=== PATIENT | male | born 1950 | race Caucasian/White ===

== ENCOUNTER 2023-04-16 14:26 | Inpatient (IN) | payer BC ==
[~2023-04-16] VITALS: Ht 177.8 cm; Wt 67.6 kg
[2023-04-16] MEDS ORDERED: CEFTRIAXONE 1 G in IV DEXTROSE 5% 50 ML IV ONE (14:45)
[2023-04-16] MEDS ORDERED: IV NORMAL SALINE 1000 ML BAG IV ONE (14:45)
[2023-04-16] MEDS ORDERED: VANCOMYCIN IV 1,000 MG in IV DEXTROSE 5% 250 ML IV ONE (14:45)
[2023-04-16] MEDS ORDERED: AZITHROMYCIN IV 500 MG in IV DEXTROSE 5% 250 ML IV ONE (14:45)
[2023-04-16] MEDS ORDERED: DEXAMETHASONE SOD PHOSPHATE 4 MG INJ IV ONE (14:45)
[2023-04-16 14:51] LABS: *BILIRUBIN,URIN NEGATIVE (NEGATIVE); *BLOOD, URINE 2+ (NEGATIVE); *CLARITY,URINE CLEAR (CLEAR); *COLOR,URINE YELLOW (YELLOW); *KETONES,URINE NEGATIVE (NEGATIVE); *PROTEIN,URINE 2+ (NEGATIVE); LEUKOCYTE ESTERASE ,URINE 2+ (NEGATIVE); NITRITE, URINE POSITIVE (NEGATIVE); PH,URINE 5.5 (5.0-8.0); UGLUCOSE NEGATIVE (NEGATIVE)
[2023-04-16] MEDS ORDERED: DEXAMETHASONE SOD PHOSPHATE 10 MG INJ ONE (14:54)
[2023-04-16] MEDS ORDERED: VANCOMYCIN IV 200 ML ONE (14:54)
[2023-04-16] MEDS ORDERED: CEFTRIAXONE /D5W 50ML IVPB **ER PYXIS IV ONE (14:54)
[2023-04-16] MEDS ORDERED: AZITHROMYCIN 500MG/ D5W 250ML IVPB **ER PYXIS ONLY IV ONE (14:55)
[2023-04-16 15:10] LABS: BASOPHILS # (AUTO) 0.2 K/UL (0.0-0.2); BASOPHILS % (AUTO) 1.2 % (0.0-2.0); EOSINOPHILS % (AUTO) 0.4 % (0.0-7.0); HEMOGLOBIN 11.7 g/dL (12.5-16.3); LYMPHOCYTES # (AUTO) 0.8 K/uL (0.8-4.8); MEAN CORPUSCULAR HGB CONC 32 g/dL (32.5-36.3); MEAN CORPUSCULAR VOLUME 91.6 fL (73.0-96.2); MONOCYTES # (AUTO) 0.4 K/uL (0.1-1.30); MONOCYTES % (AUTO) 2.7 % (0.0-11.0); NEUTROPHILS # (AUTO) 12.2 K/uL (1.8-8.9); NEUTROPHILS % (AUTO) 89.7 % (38.5-71.5); PLATELET COUNT (AUTO) 360 K/uL (152-348); RED BLOOD CELL COUNT(AUTO) 4.03 MIL/uL (4.06-5.63); RED CELL DISTRIBUTION WIDTH 17.1 % (12.1-16.2); WHITE BLOOD COUNT (AUTO) 13.5 K/uL (3.6-10.2)
[2023-04-16 15:13] LABS: DIFFERENTIAL COMMENT 1
[2023-04-16 15:21] LABS: CALCIUM 9.2 mg/dL (8.5-10.1); CARBON DIOXIDE 26 mmol/L (21-32); CHLORIDE 112 mmol/L (98-107); CREATININE 1.1 mg/dL (0.6-1.3); GLUCOSE 125 mg/dL (74-106); POTASSIUM 3.9 mmol/L (3.5-5.1); SODIUM SERUM 150 mmol/L (136-145); UREA NITROGEN, BLOOD 41 mg/dL (7-18)
[2023-04-16 15:34] LABS: ALANINE AMINOTRANSFERASE 110 U/L (16-63); ALBUMIN 2.5 g/dL (3.4-5.0); ALKALINE PHOSPHATASE 123 U/L (50-136); ASPARTATE AMINOTRANSFERASE 90 U/L (15-37); BILIRUBIN,DIRECT 0.2 mg/dL (0.0-0.2); BILIRUBIN,TOTAL 0.5 mg/dL (0.2-1.0); NT-PRO BNP 5620 pg/mL (0-125); TOTAL PROTEIN, SERUM 7.7 g/dL (6.4-8.2)
[2023-04-16 15:35] LABS: BACTERIA,URINE MANY /HPF (NONE SEEN); RBC,URINE 20-50 /HPF (0-3); WBC,URINE 20-50 /HPF (0-3)
[2023-04-16 15:36] LABS: SQUAMOUS EPITHELIAL CELL,UR MODERATE /HPF (NONE SEEN)
[2023-04-16] MEDS ORDERED: MAGNESIUM HYDROXIDE 30 ML LIQUID UDC PO PRN (16:30)
[2023-04-16] MEDS ORDERED: IV 1/2NS 1000 ML 1,000 ML IV PRN (16:30)
[2023-04-16] MEDS ORDERED: ACETAMINOPHEN 325 MG TABLET PO PRN (16:30)
[2023-04-16] MEDS ORDERED: REMEDY ESSENTIAL ZINC PASTE 113 GM TP PRN (16:30)
[2023-04-16] MEDS ORDERED: ONDANSETRON 4 MG/2 ML VIAL IV PRN (16:30)
[2023-04-16 18:02] LABS: ABG BASE EXCESS 2.8 mmol/L; ABG HCO3 24.9 mmol/L; ABG PCO2 30.3 mmHg (35.0-45.0); ABG PH 7.532 (7.350-7.450); ABG PO2 69.1 mmHg (75.0-100.0); ABG SITE LEFT BRACHIAL; ABG TOTAL HEMOGLOBIN 12.5 G/dL (13.5-18.0); COHb 0.7 % (0.5-1.5); O2Hb 94.2 % (94.0-97.0); VENT MODE Nasal Cannula
[2023-04-16 20:00] VITALS: BP 106/52; TEMP 97.6; O2SAT 99
[2023-04-16] MEDS ORDERED: ENOXAPARIN SODIUM 40 MG/0.4 ML DISP.SYRIN SQ SCH (21:00)
[2023-04-16] MEDS: IV 1/2NS 1000 ML 1,000 ML IV PRN (23:57)
[2023-04-17 00:08] VITALS: BP 100/55; TEMP 97.9; O2SAT 99
[2023-04-17 04:00] VITALS: BP 109/62; TEMP 98.1; O2SAT 98
[2023-04-17 04:22] VITALS: O2SAT 98
[2023-04-17 07:26] LABS: BASOPHILS % (AUTO) 0.3 % (0.0-2.0); HEMATOCRIT 31.9 % (36.7-47.1); HEMOGLOBIN 10.3 g/dL (12.5-16.3); LYMPHOCYTES # (AUTO) 0.9 K/uL (0.8-4.8); LYMPHOCYTES % (AUTO) 6.5 % (20.5-51.5); MEAN CORPUSCULAR HEMOGLOBIN 29.4 uug (23.8-33.4); MEAN CORPUSCULAR HGB CONC 32 g/dL (32.5-36.3); MEAN CORPUSCULAR VOLUME 90.6 fL (73.0-96.2); MONOCYTES # (AUTO) 0.4 K/uL (0.1-1.30); MONOCYTES % (AUTO) 2.6 % (0.0-11.0); NEUTROPHILS # (AUTO) 12.3 K/uL (1.8-8.9); NEUTROPHILS % (AUTO) 90.6 % (38.5-71.5); PLATELET COUNT (AUTO) 324 K/uL (152-348); RED BLOOD CELL COUNT(AUTO) 3.52 MIL/uL (4.06-5.63); RED CELL DISTRIBUTION WIDTH 16.9 % (12.1-16.2); WHITE BLOOD COUNT (AUTO) 13.6 K/uL (3.6-10.2)
[2023-04-17 07:31] LABS: DIFFERENTIAL COMMENT 1
[2023-04-17 08:04] LABS: ALANINE AMINOTRANSFERASE 76 U/L (16-63); ALBUMIN 2.1 g/dL (3.4-5.0); ALKALINE PHOSPHATASE 97 U/L (50-136); ASPARTATE AMINOTRANSFERASE 48 U/L (15-37); BILIRUBIN,TOTAL 0.4 mg/dL (0.2-1.0); CALCIUM 8.8 mg/dL (8.5-10.1); CARBON DIOXIDE 23 mmol/L (21-32); CHLORIDE 112 mmol/L (98-107); CREATININE 0.9 mg/dL (0.6-1.3); GLUCOSE 128 mg/dL (74-106); MAGNESIUM 2.1 mg/dL (1.8-2.4); POTASSIUM 3.4 mmol/L (3.5-5.1); SODIUM SERUM 147 mmol/L (136-145); TOTAL PROTEIN, SERUM 6.9 g/dL (6.4-8.2); UREA NITROGEN, BLOOD 32 mg/dL (7-18)
[2023-04-17 09:01] LABS: ABG HCO3 23.5 mmol/L; ABG PCO2 34.2 mmHg (35.0-45.0); ABG PH 7.454 (7.350-7.450); ABG PO2 70.6 mmHg (75.0-100.0); ABG SITE LEFT RADIAL; ABG TOTAL HEMOGLOBIN 11.5 G/dL (13.5-18.0); COHb 0.5 % (0.5-1.5); MetHb 0.3 % (0.0-1.5); O2Hb 93.7 % (94.0-97.0); VENT MODE Nasal Cannula
[2023-04-17] MEDS ORDERED: VILA20TA PO (11:00)
[2023-04-17] MEDS: FAMOTIDINE. 20 MG/2 ML VIAL IV SCH ×2 (11:16→21:12)
[2023-04-17] MEDS ORDERED: ENOXAPARIN SODIUM 40 MG/0.4 ML DISP.SYRIN SQ SCH (11:18)
[2023-04-17] MEDS: POTASSIUM CHLORIDE 50 ML IV SCH ×2 (11:54→12:52)
[2023-04-17] MEDS ORDERED: REMDESIVIR (CHARGED) 200 MG in IV NORMAL SALINE 210 ML IV ONE (13:00)
[2023-04-17 13:34] LABS: THYROID STIMULATING HORMONE 0.642 mIU/mL (0.358-3.740)
[2023-04-17] MEDS: CEFTRIAXONE 1 G in IV DEXTROSE 5% 50 ML IV SCH (14:23)
[2023-04-17] MEDS ORDERED: METO50TA16 PO (14:33)
[2023-04-17] MEDS ORDERED: OMEP20CA15 PO (14:33)
[2023-04-17] MEDS ORDERED: CYAN-28 PO (14:33)
[2023-04-17] MEDS ORDERED: ASPI81TA31 PO (14:33)
[2023-04-17] MEDS ORDERED: ATOR10TA PO (14:33)
[2023-04-17] MEDS ORDERED: AMLO-212 PO (14:33)
[2023-04-17] MEDS ORDERED: ARIP10TA9 PO (14:33)
[2023-04-17] MEDS ORDERED: LAMO25TA16 PO (14:33)
[2023-04-17] MEDS ORDERED: ASCO500C18 PO (14:33)
[2023-04-17] MEDS ORDERED: GABA600T12 PO (14:33)
[2023-04-17] MEDS ORDERED: FURO-151 PO (14:35)
[2023-04-17] MEDS ORDERED: ATOR20TA PO (14:37)
[2023-04-17] MEDS ORDERED: SILO8CAP2 PO (14:37)
[2023-04-17] MEDS ORDERED: ALPR0.5T8 PO (14:38)
[2023-04-17] MEDS: DEXAMETHASONE SOD PHOSPHATE 4 MG INJ IV SCH (14:58)
[2023-04-17] MEDS ORDERED: AMIODARONE HCL IV 150 MG in IV DEXTROSE 5% 100 ML IV ONE (15:00)
[2023-04-17] MEDS: AZITHROMYCIN IV 500 MG in IV DEXTROSE 5% 250 ML IV SCH (15:02)
[2023-04-17 16:27] VITALS: O2SAT 98
[2023-04-17] MEDS: AMIODARONE HCL IV 450 MG in IV DEXTROSE 5% 250 ML IV PRN (16:28)
[2023-04-17 20:30] VITALS: BP 100/60; TEMP 98.1; O2SAT 98
[2023-04-17] MEDS ORDERED: ENOXAPARIN SODIUM 100 MG/ML DISP.SYRIN SQ SCH (21:00)
[2023-04-17] MEDS ORDERED: ENOXAPARIN SODIUM 100 MG/ML DISP.SYRIN SQ ONE (21:13)
[2023-04-17] MEDS: IV 1/2NS 1000 ML 1,000 ML IV PRN (23:04)
[2023-04-18] MEDS: AMIODARONE HCL IV 450 MG in IV DEXTROSE 5% 250 ML IV PRN (00:42)
[2023-04-18 04:24] VITALS: BP 106/65; TEMP 97; O2SAT 96
[2023-04-18 07:22] LABS: BASOPHILS % (AUTO) 0.1 % (0.0-2.0); DIFFERENTIAL COMMENT 0; HEMATOCRIT 30.6 % (36.7-47.1); LYMPHOCYTES # (AUTO) 0.6 K/uL (0.8-4.8); LYMPHOCYTES % (AUTO) 5.7 % (20.5-51.5); MEAN CORPUSCULAR HEMOGLOBIN 29.5 uug (23.8-33.4); MEAN CORPUSCULAR HGB CONC 33 g/dL (32.5-36.3); MEAN CORPUSCULAR VOLUME 90.2 fL (73.0-96.2); MONOCYTES # (AUTO) 0.4 K/uL (0.1-1.30); MONOCYTES % (AUTO) 3.9 % (0.0-11.0); NEUTROPHILS # (AUTO) 9.3 K/uL (1.8-8.9); NEUTROPHILS % (AUTO) 90.3 % (38.5-71.5); PLATELET COUNT (AUTO) 328 K/uL (152-348); RED BLOOD CELL COUNT(AUTO) 3.39 MIL/uL (4.06-5.63); RED CELL DISTRIBUTION WIDTH 16.8 % (12.1-16.2); WHITE BLOOD COUNT (AUTO) 10.3 K/uL (3.6-10.2)
[2023-04-18 07:52] LABS: ALANINE AMINOTRANSFERASE 86 U/L (16-63); ALBUMIN 2.2 g/dL (3.4-5.0); ALKALINE PHOSPHATASE 95 U/L (50-136); ASPARTATE AMINOTRANSFERASE 55 U/L (15-37); BILIRUBIN,DIRECT 0.2 mg/dL (0.0-0.2); BILIRUBIN,TOTAL 0.5 mg/dL (0.2-1.0); C-REACTIVE PROTEIN 6.1 mg/dL (0.0-0.9); CALCIUM 8.7 mg/dL (8.5-10.1); CARBON DIOXIDE 24 mmol/L (21-32); CHLORIDE 110 mmol/L (98-107); CREATININE 0.8 mg/dL (0.6-1.3); GLUCOSE 117 mg/dL (74-106); POTASSIUM 3.1 mmol/L (3.5-5.1); SODIUM SERUM 145 mmol/L (136-145); TOTAL PROTEIN, SERUM 6.6 g/dL (6.4-8.2); UREA NITROGEN, BLOOD 24 mg/dL (7-18)
[2023-04-18 08:00] VITALS: BP 102/57; TEMP 98.4; O2SAT 92
[2023-04-18] MEDS ORDERED: HOME MED MISCELLANEOUS XX SCH ×2 (08:15→09:00)
[2023-04-18] MEDS: LAMOTRIGINE 25 MG TABLET PO SCH ×3 (09:20→17:10)
[2023-04-18] MEDS: ASCORBIC ACID 500 MG TABLET PO SCH (09:20)
[2023-04-18] MEDS: ARIPIPRAZOLE 10 MG TABLET PO SCH ×2 (09:20→17:10)
[2023-04-18] MEDS: CYANOCOBALAMIN 1,000 MCG TABLET PO SCH (09:24)
[2023-04-18] MEDS: METOPROLOL TARTRATE 50 MG TABLET PO SCH ×2 (09:24→21:18)
[2023-04-18] MEDS: FAMOTIDINE. 20 MG/2 ML VIAL IV SCH ×2 (09:24→21:16)
[2023-04-18] MEDS: SILODOSIN 8 MG PO SCH ×2 (09:30→17:10)
[2023-04-18] MEDS: VIIBRYD 20 MG PO SCH ×3 (09:33→17:10)
[2023-04-18] MEDS: POTASSIUM CHLORIDE 50 ML IV SCH ×4 (09:35→13:16)
[2023-04-18] MEDS: APIXABAN 2.5 MG TABLET PO SCH ×2 (10:33→21:03)
[2023-04-18 11:42] VITALS: BP 105/65; TEMP 98.2; O2SAT 94
[2023-04-18] MEDS: CEFTRIAXONE 1 G in IV DEXTROSE 5% 50 ML IV SCH (13:34)
[2023-04-18 14:06] LABS: PRE ALBUMIN 16.3 MG/DL (18.0-35.7)
[2023-04-18] MEDS: AZITHROMYCIN IV 500 MG in IV DEXTROSE 5% 250 ML IV SCH (14:43)
[2023-04-18] MEDS: DEXAMETHASONE SOD PHOSPHATE 4 MG INJ IV SCH (14:43)
[2023-04-18] MEDS: IV 1/2NS 1000 ML 1,000 ML IV PRN (14:43)
[2023-04-18 16:13] VITALS: O2SAT 96
[2023-04-18 17:45] VITALS: BP 137/75; TEMP 98.4; O2SAT 96
[2023-04-18] MEDS: REMDESIVIR (CHARGED) 100 MG in IV NORMAL SALINE 100 ML IV SCH (18:06)
[2023-04-18 20:00] VITALS: BP 134/57; TEMP 97.8; O2SAT 99
[2023-04-18] MEDS ORDERED: MEGESTROL ACETATE 400 MG/10 ML LIQUID UDC PO SCH (21:00)
[2023-04-18] MEDS ORDERED: SILODOSIN 8 MG PO SCH (21:00)
[2023-04-18] MEDS ORDERED: GABAPENTIN 300 MG CAPSULE PO SCH (21:00)
[2023-04-18] MEDS ORDERED: LORAZEPAM 2 MG/1 ML VIAL IV PRN (21:15)
[2023-04-18] MEDS: MEGESTROL ACETATE 400 MG/10 ML LIQUID UDC PO SCH (21:18)
[2023-04-19] VITALS: BP 118/66; TEMP 97.7; O2SAT 99
[2023-04-19 04:00] VITALS: BP 151/82; TEMP 97.6; O2SAT 97
[2023-04-19] MEDS: IV 1/2NS 1000 ML 1,000 ML IV PRN (05:35)
[2023-04-19 07:29] LABS: BASOPHILS % (AUTO) 0.1 % (0.0-2.0); HEMATOCRIT 29.4 % (36.7-47.1); HEMOGLOBIN 9.7 g/dL (12.5-16.3); LYMPHOCYTES # (AUTO) 0.5 K/uL (0.8-4.8); LYMPHOCYTES % (AUTO) 7.2 % (20.5-51.5); MEAN CORPUSCULAR HEMOGLOBIN 29.9 uug (23.8-33.4); MEAN CORPUSCULAR HGB CONC 33 g/dL (32.5-36.3); MEAN CORPUSCULAR VOLUME 90.2 fL (73.0-96.2); MONOCYTES # (AUTO) 0.5 K/uL (0.1-1.30); NEUTROPHILS # (AUTO) 6.5 K/uL (1.8-8.9); NEUTROPHILS % (AUTO) 86.7 % (38.5-71.5); PLATELET COUNT (AUTO) 336 K/uL (152-348); RED BLOOD CELL COUNT(AUTO) 3.26 MIL/uL (4.06-5.63); RED CELL DISTRIBUTION WIDTH 16.6 % (12.1-16.2); WHITE BLOOD COUNT (AUTO) 7.5 K/uL (3.6-10.2)
[2023-04-19 07:38] LABS: DIFFERENTIAL COMMENT 1
[2023-04-19 08:18] LABS: ALANINE AMINOTRANSFERASE 93 U/L (16-63); ALBUMIN 2.1 g/dL (3.4-5.0); ALKALINE PHOSPHATASE 82 U/L (50-136); ASPARTATE AMINOTRANSFERASE 53 U/L (15-37); BILIRUBIN,DIRECT 0.2 mg/dL (0.0-0.2); BILIRUBIN,TOTAL 0.4 mg/dL (0.2-1.0); CALCIUM 8.6 mg/dL (8.5-10.1); CARBON DIOXIDE 24 mmol/L (21-32); CHLORIDE 108 mmol/L (98-107); CREATININE 0.7 mg/dL (0.6-1.3); GLUCOSE 100 mg/dL (74-106); SODIUM SERUM 141 mmol/L (136-145); TOTAL PROTEIN, SERUM 5.9 g/dL (6.4-8.2); UREA NITROGEN, BLOOD 21 mg/dL (7-18)
[2023-04-19] MEDS: MUPIROCIN 2% OINT 22 GM TUBE NS SCH ×2 (08:43→22:08)
[2023-04-19] MEDS: ARIPIPRAZOLE 10 MG TABLET PO SCH ×2 (08:44→16:33)
[2023-04-19] MEDS: FAMOTIDINE 20 MG TABLET PO SCH ×2 (08:44→17:51)
[2023-04-19] MEDS: LAMOTRIGINE 25 MG TABLET PO SCH ×3 (08:44→16:51)
[2023-04-19] MEDS: CYANOCOBALAMIN 1,000 MCG TABLET PO SCH (08:44)
[2023-04-19] MEDS: APIXABAN 5 MG TABLET PO SCH ×2 (08:46→21:56)
[2023-04-19] MEDS: METOPROLOL TARTRATE 50 MG TABLET PO SCH ×2 (08:49→21:54)
[2023-04-19] MEDS: MEGESTROL ACETATE 400 MG/10 ML LIQUID UDC PO SCH (08:50)
[2023-04-19] MEDS: SILODOSIN 8 MG PO SCH ×2 (08:50→17:53)
[2023-04-19] MEDS: VIIBRYD 20 MG PO SCH ×3 (08:51→17:51)
[2023-04-19] MEDS: ASCORBIC ACID 500 MG TABLET PO SCH (08:52)
[2023-04-19] MEDS ORDERED: MUPIROCIN 2% OINT 22 GM TUBE NS SCH (09:00)
[2023-04-19 11:30] VITALS: BP 121/68; TEMP 97.5; O2SAT 94
[2023-04-19] MEDS ORDERED: SWABABLE VALVE TRANSFER SET EA MC ONE (12:52)
[2023-04-19] MEDS ORDERED: IOHEXOL 350 100 ML INFUS..BTL ONE (12:52)
[2023-04-19] MEDS ORDERED: IV NORMAL SALINE 250 ML IV ONE (12:53)
[2023-04-19] MEDS: REMDESIVIR (CHARGED) 100 MG in IV NORMAL SALINE 100 ML IV SCH (13:53)
[2023-04-19 16:23] VITALS: O2SAT 98
[2023-04-19] MEDS: levoFLOXacin 500 MG TABLET PO SCH (16:33)
[2023-04-19] MEDS: DEXAMETHASONE SOD PHOSPHATE 4 MG INJ IV SCH (16:33)
[2023-04-19 16:53] VITALS: BP 130/69; TEMP 97.9; O2SAT 98
[2023-04-19 20:00] VITALS: BP 128/83; TEMP 99; O2SAT 97
[2023-04-19] MEDS: GABAPENTIN 300 MG CAPSULE PO SCH (21:53)
[2023-04-20] VITALS (8 sets, daily range): BP systolic 113–178; BP diastolic 58–86; TEMP 97.9–99.2; O2SAT 95–98
[2023-04-20 06:59] LABS: BASOPHILS % (AUTO) 0.4 % (0.0-2.0); HEMATOCRIT 31.1 % (36.7-47.1); HEMOGLOBIN 10.4 g/dL (12.5-16.3); LYMPHOCYTES # (AUTO) 0.6 K/uL (0.8-4.8); LYMPHOCYTES % (AUTO) 6.4 % (20.5-51.5); MEAN CORPUSCULAR HEMOGLOBIN 29.9 uug (23.8-33.4); MEAN CORPUSCULAR HGB CONC 33 g/dL (32.5-36.3); MEAN CORPUSCULAR VOLUME 89.6 fL (73.0-96.2); MONOCYTES # (AUTO) 0.5 K/uL (0.1-1.30); MONOCYTES % (AUTO) 5.3 % (0.0-11.0); NEUTROPHILS # (AUTO) 7.6 K/uL (1.8-8.9); NEUTROPHILS % (AUTO) 87.9 % (38.5-71.5); PLATELET COUNT (AUTO) 359 K/uL (152-348); RED BLOOD CELL COUNT(AUTO) 3.47 MIL/uL (4.06-5.63); RED CELL DISTRIBUTION WIDTH 16.2 % (12.1-16.2); WHITE BLOOD COUNT (AUTO) 8.7 K/uL (3.6-10.2)
[2023-04-20 07:16] LABS: DIFFERENTIAL COMMENT 1
[2023-04-20 07:42] LABS: ALANINE AMINOTRANSFERASE 92 U/L (16-63); ALBUMIN 2.2 g/dL (3.4-5.0); ALKALINE PHOSPHATASE 91 U/L (50-136); ASPARTATE AMINOTRANSFERASE 45 U/L (15-37); BILIRUBIN,DIRECT 0.2 mg/dL (0.0-0.2); BILIRUBIN,TOTAL 0.4 mg/dL (0.2-1.0); CALCIUM 8.6 mg/dL (8.5-10.1); CARBON DIOXIDE 28 mmol/L (21-32); CHLORIDE 108 mmol/L (98-107); CREATININE 0.8 mg/dL (0.6-1.3); GLUCOSE 96 mg/dL (74-106); LACTATE DEHYDROGENASE 295 U/L (85-227); SODIUM SERUM 143 mmol/L (136-145); TOTAL PROTEIN, SERUM 6.1 g/dL (6.4-8.2); UREA NITROGEN, BLOOD 23 mg/dL (7-18)
[2023-04-20] MEDS: ARIPIPRAZOLE 10 MG TABLET PO SCH ×2 (10:06→16:43)
[2023-04-20] MEDS: METOPROLOL TARTRATE 50 MG TABLET PO SCH ×2 (10:06→21:59)
[2023-04-20] MEDS: CYANOCOBALAMIN 1,000 MCG TABLET PO SCH (10:06)
[2023-04-20] MEDS: APIXABAN 5 MG TABLET PO SCH ×2 (10:08→22:02)
[2023-04-20] MEDS: FAMOTIDINE 20 MG TABLET PO SCH ×2 (10:09→16:43)
[2023-04-20] MEDS: MEGESTROL ACETATE 400 MG/10 ML LIQUID UDC PO SCH (10:09)
[2023-04-20] MEDS: VIIBRYD 20 MG PO SCH ×3 (10:09→16:42)
[2023-04-20] MEDS: SILODOSIN 8 MG PO SCH ×2 (10:09→16:43)
[2023-04-20] MEDS: ASCORBIC ACID 500 MG TABLET PO SCH (10:17)
[2023-04-20] MEDS: LAMOTRIGINE 25 MG TABLET PO SCH ×3 (10:17→16:43)
[2023-04-20] MEDS: MUPIROCIN 2% OINT 22 GM TUBE NS SCH ×2 (10:18→22:03)
[2023-04-20 11:02] LABS: FERRITIN 2494 ng/mL (26-388)
[2023-04-20] MEDS: REMDESIVIR (CHARGED) 100 MG in IV NORMAL SALINE 100 ML IV SCH (13:21)
[2023-04-20] MEDS: levoFLOXacin 500 MG TABLET PO SCH (16:43)
[2023-04-20] MEDS: DEXAMETHASONE SOD PHOSPHATE 4 MG INJ IV SCH (16:43)
[2023-04-20] MEDS: GABAPENTIN 300 MG CAPSULE PO SCH (21:59)
[2023-04-20] MEDS: ATORVASTATIN 20 MG TABLET PO SCH (22:00)
[2023-04-21] VITALS: BP 118/74; TEMP 97.5; O2SAT 98
[2023-04-21 04:00] VITALS: BP 131/74; TEMP 97.7; O2SAT 96
[2023-04-21 08:06] LABS: BASOPHILS % (AUTO) 0.2 % (0.0-2.0); EOSINOPHILS % (AUTO) 0.2 % (0.0-7.0); HEMATOCRIT 30.2 % (36.7-47.1); HEMOGLOBIN 10.3 g/dL (12.5-16.3); LYMPHOCYTES # (AUTO) 0.7 K/uL (0.8-4.8); LYMPHOCYTES % (AUTO) 6.9 % (20.5-51.5); MEAN CORPUSCULAR HEMOGLOBIN 30.6 uug (23.8-33.4); MEAN CORPUSCULAR HGB CONC 34 g/dL (32.5-36.3); MEAN CORPUSCULAR VOLUME 89.7 fL (73.0-96.2); MONOCYTES # (AUTO) 0.6 K/uL (0.1-1.30); MONOCYTES % (AUTO) 5.6 % (0.0-11.0); NEUTROPHILS # (AUTO) 8.8 K/uL (1.8-8.9); NEUTROPHILS % (AUTO) 87.1 % (38.5-71.5); PLATELET COUNT (AUTO) 358 K/uL (152-348); RED BLOOD CELL COUNT(AUTO) 3.37 MIL/uL (4.06-5.63); RED CELL DISTRIBUTION WIDTH 16.9 % (12.1-16.2); WHITE BLOOD COUNT (AUTO) 10.1 K/uL (3.6-10.2)
[2023-04-21 08:17] LABS: DIFFERENTIAL COMMENT 1
[2023-04-21 08:21] LABS: ALANINE AMINOTRANSFERASE 85 U/L (16-63); ALBUMIN 2.2 g/dL (3.4-5.0); ALKALINE PHOSPHATASE 86 U/L (50-136); ASPARTATE AMINOTRANSFERASE 35 U/L (15-37); BILIRUBIN,DIRECT 0.1 mg/dL (0.0-0.2); BILIRUBIN,TOTAL 0.4 mg/dL (0.2-1.0); CALCIUM 8.6 mg/dL (8.5-10.1); CARBON DIOXIDE 26 mmol/L (21-32); CHLORIDE 110 mmol/L (98-107); CREATININE 0.8 mg/dL (0.6-1.3); GLUCOSE 97 mg/dL (74-106); POTASSIUM 4.1 mmol/L (3.5-5.1); SODIUM SERUM 142 mmol/L (136-145); UREA NITROGEN, BLOOD 26 mg/dL (7-18)
[2023-04-21] MEDS: METOPROLOL TARTRATE 50 MG TABLET PO SCH ×2 (09:23→21:40)
[2023-04-21] MEDS: APIXABAN 5 MG TABLET PO SCH ×2 (09:24→21:39)
[2023-04-21] MEDS: VIIBRYD 20 MG PO SCH ×3 (09:26→17:54)
[2023-04-21] MEDS: ARIPIPRAZOLE 10 MG TABLET PO SCH ×2 (09:26→17:55)
[2023-04-21] MEDS: FAMOTIDINE 20 MG TABLET PO SCH ×2 (09:26→17:55)
[2023-04-21] MEDS: MEGESTROL ACETATE 400 MG/10 ML LIQUID UDC PO SCH (09:26)
[2023-04-21] MEDS: CYANOCOBALAMIN 1,000 MCG TABLET PO SCH (09:27)
[2023-04-21] MEDS: MUPIROCIN 2% OINT 22 GM TUBE NS SCH ×2 (09:27→21:42)
[2023-04-21] MEDS: LAMOTRIGINE 25 MG TABLET PO SCH ×3 (09:27→17:56)
[2023-04-21] MEDS: ASCORBIC ACID 500 MG TABLET PO SCH (09:27)
[2023-04-21] MEDS: SILODOSIN 8 MG PO SCH ×2 (09:31→18:07)
[2023-04-21 12:10] VITALS: BP 124/75; TEMP 98.2; O2SAT 95
[2023-04-21] MEDS: REMDESIVIR (CHARGED) 100 MG in IV NORMAL SALINE 100 ML IV SCH (13:22)
[2023-04-21] MEDS: levoFLOXacin 500 MG TABLET PO SCH (15:23)
[2023-04-21] MEDS: DEXAMETHASONE SOD PHOSPHATE 4 MG INJ IV SCH (15:23)
[2023-04-21 15:38] VITALS: BP 127/72; TEMP 98; O2SAT 95
[2023-04-21 20:00] VITALS: BP 111/67; TEMP 97.4; O2SAT 96
[2023-04-21] MEDS: GABAPENTIN 300 MG CAPSULE PO SCH (21:38)
[2023-04-21] MEDS: ATORVASTATIN 20 MG TABLET PO SCH (21:41)
[2023-04-22] VITALS: BP 118/80; O2SAT 100
[2023-04-22 04:00] VITALS: BP 117/70; TEMP 97.8; O2SAT 97
[2023-04-22] MEDS: ARIPIPRAZOLE 10 MG TABLET PO SCH ×2 (09:21→17:54)
[2023-04-22] MEDS: MEGESTROL ACETATE 400 MG/10 ML LIQUID UDC PO SCH (09:22)
[2023-04-22] MEDS: LAMOTRIGINE 25 MG TABLET PO SCH ×3 (09:22→17:54)
[2023-04-22] MEDS: VIIBRYD 20 MG PO SCH ×3 (09:22→17:54)
[2023-04-22] MEDS: SILODOSIN 8 MG PO SCH ×2 (09:23→17:54)
[2023-04-22] MEDS: CYANOCOBALAMIN 1,000 MCG TABLET PO SCH (09:23)
[2023-04-22] MEDS: ASCORBIC ACID 500 MG TABLET PO SCH (09:23)
[2023-04-22] MEDS: FAMOTIDINE 20 MG TABLET PO SCH ×2 (09:23→17:54)
[2023-04-22] MEDS: MUPIROCIN 2% OINT 22 GM TUBE NS SCH ×2 (09:24→21:31)
[2023-04-22] MEDS: APIXABAN 5 MG TABLET PO SCH ×2 (09:25→21:29)
[2023-04-22] MEDS: METOPROLOL TARTRATE 50 MG TABLET PO SCH ×2 (09:28→21:28)
[2023-04-22 11:42] VITALS: BP 88/49; TEMP 99.1; O2SAT 98
[2023-04-22] MEDS: levoFLOXacin 500 MG TABLET PO SCH (14:13)
[2023-04-22 14:16] LABS: BASOPHILS % (AUTO) 0.3 % (0.0-2.0); EOSINOPHILS % (AUTO) 0.1 % (0.0-7.0); HEMATOCRIT 32.3 % (36.7-47.1); HEMOGLOBIN 10.4 g/dL (12.5-16.3); LYMPHOCYTES # (AUTO) 0.9 K/uL (0.8-4.8); LYMPHOCYTES % (AUTO) 6.9 % (20.5-51.5); MEAN CORPUSCULAR HEMOGLOBIN 29.2 uug (23.8-33.4); MEAN CORPUSCULAR HGB CONC 32 g/dL (32.5-36.3); MEAN CORPUSCULAR VOLUME 90.6 fL (73.0-96.2); MONOCYTES # (AUTO) 0.8 K/uL (0.1-1.30); MONOCYTES % (AUTO) 6.4 % (0.0-11.0); NEUTROPHILS # (AUTO) 11.2 K/uL (1.8-8.9); NEUTROPHILS % (AUTO) 86.3 % (38.5-71.5); PLATELET COUNT (AUTO) 348 K/uL (152-348); RED BLOOD CELL COUNT(AUTO) 3.57 MIL/uL (4.06-5.63); RED CELL DISTRIBUTION WIDTH 16.7 % (12.1-16.2)
[2023-04-22 14:17] LABS: DIFFERENTIAL COMMENT 1
[2023-04-22 14:24] LABS: CALCIUM 8.3 mg/dL (8.5-10.1); CARBON DIOXIDE 25 mmol/L (21-32); CHLORIDE 108 mmol/L (98-107); CREATININE 0.8 mg/dL (0.6-1.3); GLUCOSE 92 mg/dL (74-106); MAGNESIUM 2.2 mg/dL (1.8-2.4); SODIUM SERUM 142 mmol/L (136-145); UREA NITROGEN, BLOOD 31 mg/dL (7-18)
[2023-04-22 16:00] VITALS: BP 110/57; TEMP 97.6; O2SAT 96
[2023-04-22 20:00] VITALS: BP 107/50; TEMP 96.9; O2SAT 96
[2023-04-22] MEDS: GABAPENTIN 300 MG CAPSULE PO SCH (21:27)
[2023-04-22] MEDS: ATORVASTATIN 20 MG TABLET PO SCH (21:30)
[2023-04-23] VITALS: BP 99/51; TEMP 97.7; O2SAT 96
[2023-04-23 04:19] VITALS: BP 112/68; TEMP 97.8; O2SAT 96
[2023-04-23] MEDS: METOPROLOL TARTRATE 50 MG TABLET PO SCH ×2 (09:00→20:39)
[2023-04-23] MEDS: MEGESTROL ACETATE 400 MG/10 ML LIQUID UDC PO SCH (09:25)
[2023-04-23] MEDS: ARIPIPRAZOLE 10 MG TABLET PO SCH ×2 (09:25→17:05)
[2023-04-23] MEDS: FAMOTIDINE 20 MG TABLET PO SCH ×2 (09:25→17:05)
[2023-04-23] MEDS: CYANOCOBALAMIN 1,000 MCG TABLET PO SCH (09:25)
[2023-04-23] MEDS: LAMOTRIGINE 25 MG TABLET PO SCH ×3 (09:25→17:05)
[2023-04-23] MEDS: ASCORBIC ACID 500 MG TABLET PO SCH (09:25)
[2023-04-23] MEDS: VIIBRYD 20 MG PO SCH ×3 (09:26→17:04)
[2023-04-23] MEDS: SILODOSIN 8 MG PO SCH ×2 (09:26→17:05)
[2023-04-23] MEDS: APIXABAN 5 MG TABLET PO SCH ×2 (09:27→20:43)
[2023-04-23] MEDS: MUPIROCIN 2% OINT 22 GM TUBE NS SCH ×2 (09:32→20:18)
[2023-04-23 11:13] VITALS: BP 118/61; TEMP 98.2; O2SAT 95
[2023-04-23] MEDS: levoFLOXacin 500 MG TABLET PO SCH (14:40)
[2023-04-23 15:03] VITALS: BP 133/77; TEMP 98.4; O2SAT 95
[2023-04-23] MEDS: ATORVASTATIN 20 MG TABLET PO SCH (20:39)
[2023-04-23] MEDS: GABAPENTIN 300 MG CAPSULE PO SCH (20:39)
[2023-04-24 04:00] VITALS: BP 146/86; TEMP 97.3; O2SAT 93
[2023-04-24] MEDS ORDERED: SPIRONOLACTONE 25 MG TABLET PO SCH (09:00)
[2023-04-24] MEDS ORDERED: FUROSEMIDE 20 MG TABLET PO SCH (09:00)
[2023-04-24] MEDS: VIIBRYD 20 MG PO SCH ×3 (09:33→17:30)
[2023-04-24] MEDS: SILODOSIN 8 MG PO SCH ×2 (09:33→17:30)
[2023-04-24] MEDS: MEGESTROL ACETATE 400 MG/10 ML LIQUID UDC PO SCH (09:33)
[2023-04-24] MEDS: ARIPIPRAZOLE 10 MG TABLET PO SCH ×2 (09:34→16:38)
[2023-04-24] MEDS: FAMOTIDINE 20 MG TABLET PO SCH ×2 (09:34→16:39)
[2023-04-24] MEDS: LAMOTRIGINE 25 MG TABLET PO SCH ×3 (09:34→16:39)
[2023-04-24] MEDS: CYANOCOBALAMIN 1,000 MCG TABLET PO SCH (09:34)
[2023-04-24] MEDS: ASCORBIC ACID 500 MG TABLET PO SCH (09:34)
[2023-04-24] MEDS: APIXABAN 5 MG TABLET PO SCH (09:35)
[2023-04-24] MEDS: MUPIROCIN 2% OINT 22 GM TUBE NS SCH (09:36)
[2023-04-24] MEDS: METOPROLOL TARTRATE 50 MG TABLET PO SCH (09:36)
[2023-04-24 11:02] VITALS: BP 100/55; TEMP 98.4; O2SAT 96
[2023-04-24] MEDS ORDERED: FAMO20TA8 PO (13:24)
[2023-04-24] MEDS ORDERED: MUPI22OI2 NS (13:24)
[2023-04-24] MEDS ORDERED: ATOR20TA PO (13:24)
[2023-04-24] MEDS ORDERED: SPIR25TA PO (13:24)
[2023-04-24] MEDS ORDERED: ACET325T53 PO (13:24)
[2023-04-24] MEDS ORDERED: APIX5TAB PO (13:24)
[2023-04-24] MEDS ORDERED: GABA300C PO (13:24)
[2023-04-24] MEDS ORDERED: FURO20TA4 PO (13:24)
[2023-04-24] MEDS ORDERED: MEGE400O4 PO (13:24)
[2023-04-24 15:03] VITALS: BP 101/47; TEMP 98.2
[2023-04-24 15:30] VITALS: BP 101/47; TEMP 98.2; O2SAT 96
== END 2023-04-24 20:37 | disposition home health service (06) | DRG 871 ==
LOC: ER 14:26 → TELE3 17:36 → TELE-TD3 04-17 14:46 → TELE3 04-18 18:29
PROVIDERS: ADMIT Internal Medicine; ATTEND Nurse Practitioner Acute Care
PROC: XW033E5 Introduction of Remdesivir Anti-infective into Peripheral Vein, Percutaneous Approach, New Technology Group 5 (ICD-10-PCS; principal; 2023-04-17)
PROC: 05H633Z Insertion of Infusion Device into Left Subclavian Vein, Percutaneous Approach (ICD-10-PCS; 2023-04-18)
PROC: B547ZZA Ultrasonography of Left Subclavian Vein, Guidance (ICD-10-PCS; 2023-04-18)
DX: A41.89 Other specified sepsis (principal); G93.41 Metabolic encephalopathy; U07.1 COVID-19; J96.01 Acute respiratory failure with hypoxia; J12.82 Pneumonia due to coronavirus disease 2019; J15.9 Unspecified bacterial pneumonia; I50.33 Acute on chronic diastolic (congestive) heart failure; I63.9 Cerebral infarction, unspecified; E87.0 Hyperosmolality and hypernatremia; N39.0 Urinary tract infection, site not specified; I48.20 Chronic atrial fibrillation, unspecified; F01.53 Vascular dementia, unspecified severity, with mood disturbance; D68.69 Other thrombophilia; E22.2 Syndrome of inappropriate secretion of antidiuretic hormone; I47.20 Ventricular tachycardia, unspecified; D63.8 Anemia in other chronic diseases classified elsewhere; E78.5 Hyperlipidemia, unspecified; E86.0 Dehydration; F25.9 Schizoaffective disorder, unspecified; K21.9 Gastro-esophageal reflux disease without esophagitis; M24.561 Contracture, right knee; M24.562 Contracture, left knee; Z79.01 Long term (current) use of anticoagulants; Z98.1 Arthrodesis status; Z86.79 Personal history of other diseases of the circulatory system; Z95.1 Presence of aortocoronary bypass graft; Z95.5 Presence of coronary angioplasty implant and graft; Z22.322 Carrier or suspected carrier of Methicillin resistant Staphylococcus aureus; I25.10 Atherosclerotic heart disease of native coronary artery without angina pectoris; I11.0 Hypertensive heart disease with heart failure; S91.102A Unspecified open wound of left great toe without damage to nail, initial encounter; S91.101A Unspecified open wound of right great toe without damage to nail, initial encounter; X58.XXXA Exposure to other specified factors, initial encounter; Y93.9 Activity, unspecified; Y92.129 Unspecified place in nursing home as the place of occurrence of the external cause; F39 Unspecified mood [affective] disorder; B96.5 Pseudomonas (aeruginosa) (mallei) (pseudomallei) as the cause of diseases classified elsewhere; R29.701 NIHSS score 1
CPT/HCPCS: 36415; 36600; 70496; 71045; 82803; 83605; 83615; 83735; 84443; 84484; 85025; 85610; 85730; 86140; 87040; 93005; 93307; A6213; G0378; J0248; J0282; J0456; J0696; J1100; J1650; J3370; J3480; J3490; J7040; J7050; J8999; Q9967